=== PATIENT | female | born 1950 | race Caucasian/White ===

== ENCOUNTER → 2021-09-02 08:09 | Outpatient (CLI) | payer MEDICARE, SELFPAY ==
[2021-09-02 20:33] LABS: COVID-19 CEPHEID PCR (VTM/NP) Negative (Negative)
== END ==
PROVIDERS: PCP Family Medicine; Visit Provider Physician Assistant
DX: Z01.812 Encounter for preprocedural laboratory examination (principal); Z20.822 Contact with and (suspected) exposure to COVID-19
CPT/HCPCS: C9803; U0003; U0005

== ENCOUNTER → 2022-05-27 12:59 | Outpatient (CLI) | payer MEDICARE, SELFPAY ==
--- NOTE | 2022-05-27 13:01 | DI.RAD.S_ITS ---
PROCEDURE: XR LUMBAR SPINE MIN 4V INDICATIONS: Low back pain TECHNIQUE: 5 views of the lumbar spine were acquired, including bilateral oblique views. COMPARISON: None. FINDINGS: Bones: 5 nonrib-bearing vertebrae are present. There is mild, approximately 7 millimeters of L5-S1 anterolisthesis. There is mild, approximately 4 millimeters of L2-L3 retrolisthesis. There is mild, approximately 3 millimeters of L3-L4 retrolisthesis. No vertebral body compression fractures. No suspicious bony lesions. Moderate L2-L3 degenerative disc change. Mild L3-L4 L4-L5 and L5-S1 degenerative disc disease. Mild L3-L4, L4-L5 and L5-S1 facet arthropathy. Soft tissues: Overlying bowel gas pattern is normal. No suspicious soft tissue calcifications. Oblique images: No pars defects. IMPRESSION: 1. Multilevel degenerative disc disease. 2. Multilevel facet arthropathy. 3. No fracture. No acute osseous lesion. If symptoms and/or clinical suspicion for pathology persists, evaluation with MRI should be considered for further assessment. Dictated by: Mallika Mcgill MD, PhD on 05/27/2022 at 14:12 Approved by: Mallika Mcgill MD, PhD on 05/27/2022 at 14:13
== END ==
PROVIDERS: PCP Family Medicine; Referring Provider Anesthesiology; Visit Provider Anesthesiology
DX: M51.17 Intervertebral disc disorders with radiculopathy, lumbosacral region (principal); M51.16 Intervertebral disc disorders with radiculopathy, lumbar region; M47.27 Other spondylosis with radiculopathy, lumbosacral region; M47.26 Other spondylosis with radiculopathy, lumbar region; M48.062 Spinal stenosis, lumbar region with neurogenic claudication; M54.50 Low back pain, unspecified; G89.29 Other chronic pain; G95.19 Other vascular myelopathies
CPT/HCPCS: 72110; 99214